=== PATIENT | female | born 2000 | race Caucasian/White ===

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

== ENCOUNTER 2021-04-26 10:34 | Emergency (ER) | payer BC, OTHER ==
[2021-04-26] MEDS ORDERED: dexAMETHasone 4 MG TAB PO STA (13:05)
--- NOTE | 2021-04-26 13:17 | ED ---
General Adult HPI - General Chief complaint: ENT Stated complaint: Sore throat Time Seen by Provider: 04/26/21 10:41 Source: patient Mode of arrival: ambulatory Limitations: no limitations - History of Present Illness Initial comments: 20-year-old female presents to the emergency room for a chief complaint of sore throat. Patient has had a sore throat for 3 days now starting on Saturday. She did see the code enforcement officer at that time and was started on azithromycin. This was through telemetry visit. Today patient's throat felt worse and primary care was unable to do a [id number] visits recommends she come to the emergency room. She denies any difficulty swallowing or breathing. She has felt febrile on and off. Denies cough. She does admit to congestion.Patient has no other complaints at this time including shortness of breath, chest pain, abdominal pain, nausea or vomiting, headache, or visual changes. - Related Data Home Medications Medication Instructions Recorded Confirmed Acetaminophen [Tylenol 8 Hour] 650 mg PO Q8H PRN 04/26/21 04/26/21 Azithromycin [Zithromax Z-pack (6 See Taper PO HS 04/26/21 04/26/21 tabs)] Ibuprofen [Motrin Ib] 400 mg PO Q6H PRN 04/26/21 04/26/21 Norgestimate-Ethinyl Estradiol 1 tab PO HS 04/26/21 04/26/21 [Tri-Estarylla Tablet] busPIRone HCL 10 mg PO DAILY 04/26/21 04/26/21 Allergies Allergy/AdvReac Type Severity Reaction Status Date / Time Penicillins Allergy Anaphylaxis Verified 04/26/21 11:36 Sulfa (Sulfonamide Allergy Anaphylaxis Verified 04/26/21 11:36 Antibiotics) Review of Systems ROS Statement: Those systems with pertinent positive or pertinent negative responses have been documented in the HPI. ROS Other: All systems not noted in ROS Statement are negative. Past Medical History Past Medical History: No Reported History History of Any Multi-Drug Resistant Organisms: None Reported Past Surgical History: No Surgical Hx Reported Past Psychological History: No Psychological Hx Reported Smoking Status: Never smoker Past Alcohol Use History: None Reported Past Drug Use History: None Reported General Exam Limitations: no limitations General appearance: alert, in no apparent distress Head exam: Present: atraumatic, normocephalic, normal inspection Eye exam: Present: normal appearance, PERRL, EOMI. Absent: scleral icterus, conjunctival injection, periorbital swelling ENT exam: Present: normal exam, mucous membranes moist, TM's normal bilaterally, normal external ear exam. Absent: normal oropharynx (Bilateral tonsillar exudates noted) Neck exam: Present: normal inspection, full ROM, lymphadenopathy (Mild Submandibular lymphadenopathy). Absent: tenderness, meningismus Respiratory exam: Present: normal lung sounds bilaterally. Absent: respiratory distress, wheezes, rales, rhonchi, stridor Cardiovascular Exam: Present: regular rate, normal rhythm, normal heart sounds. Absent: systolic murmur, diastolic murmur, rubs, gallop, clicks GI/Abdominal exam: Present: soft, normal bowel sounds. Absent: distended, tenderness, guarding, rebound, rigid Course Vital Signs 04/26/21 04/26/21 10:38 13:28 Temperature 98.3 F 98.5 F Pulse Rate 94 80 Respiratory 16 18 Rate Blood Pressure 131/79 112/78 O2 Sat by Pulse 99 100 Oximetry Medical Decision Making - Medical Decision Making Vitals are stable. Patient is well-appearing. Patient does have tonsillar exudate bilaterally. However tonsillar pillars are symmetric. Uvula is midline. No evidence of abscess. Patient was tested for strep, mono, and Covid all of which were negative. Patient is on day 3 of azithromycin and we will continue this given her anaphylactic ALLERGY to penicillins. Recommend she fol low up with culture results. She'll should return here for any worsening symptoms. She was given a dose of Decadron prior to discharge. - Lab Data Lab Results 04/26/21 04/26/21 04/26/21 Range/Units 11:34 11:34 11:34 Coronavirus (PCR) Not Detected (Not Detectd) Heterophile Antibody Negative (Negative) Group A Strep Rapid Negative (Negative) Disposition Clinical Impression: Pharyngitis Disposition: HOME SELF-CARE Condition: Good Instructions (If sedation given, give patient instructions): Pharyngitis (ED) Additional Instructions: Please continue to take the azithromycin as discussed. Please follow up with primary care in 1-2 days. Return to the ER for any worsening symptoms. Is patient prescribed a controlled substance at d/c from ED?: No Referrals: Arin Mccauley MD [Primary Care Provider] - 1-2 days Time of Disposition: 13:16
[2021-04-26 13:29] VITALS: BP 112/78; PULSE 80; RESP 18; TEMP 98.5
== END 2021-04-26 13:29 | disposition home or self-care (01) ==
LOC: EC 10:34
DX: J02.9 Acute pharyngitis, unspecified (principal); Z20.822 Contact with and (suspected) exposure to COVID-19; Z88.0 Allergy status to penicillin
CPT/HCPCS: 36415; 86308; 87081; 87430; 87635; 99283; J8540

== ENCOUNTER → 2022-02-21 | Outpatient (CLI) | payer OTHER ==
--- NOTE | 2022-02-21 15:52 | US ---
EXAMINATION TYPE: US pelvic complete DATE OF EXAM: 02/21/2022 COMPARISON: NONE CLINICAL HISTORY: R10.2 PELVIC PAIN. Pelvic pain for the past 2-3 months, history of ovarian cyst. TECHNIQUE: Transabdominal (TA). Transabdominal sonographic images of the pelvis were acquired. Date of LMP: 02/05/2022 EXAM MEASUREMENTS: Uterus: 6.7 x 4.7 x 3.3 cm Endometrial Stripe: 0.4 cm Right Ovary: 2.0 x 1.5 x 2.0 cm Left Ovary: 3.8 x 3.2 x 2.3 cm 1. Uterus: Anteverted wnl 2. Endometrium: wnl 3. Right Ovary: wnl 4. Left Ovary: wnl 5. Bilateral Adnexa: wnl 6. Posterior cul-de-sac: wnl No abnormalities seen at this time. IMPRESSION: 1. Unremarkable pelvic ultrasound.
== END | disposition home or self-care (01) ==
LOC: RADUSWWP 15:27
PROVIDERS: ATTEND Obstetrics & Gynecology
DX: R10.2 Pelvic and perineal pain (principal)
CPT/HCPCS: 76856

== ENCOUNTER → 2022-10-05 | Outpatient (CLI) | payer BC ==
[2022-10-06 11:41] LABS: Clam IgE <0.10 kU/L; Codfish IgE <0.10 kU/L; Egg White IgE 0.11 kU/L; Peanut IgE <0.10 kU/L; Scallop IgE <0.10 kU/L; Shrimp IgE <0.10 kU/L; Soybean IgE <0.10 kU/L; Walnut IgE (Food) <0.10 kU/L
== END | disposition home or self-care (01) ==
LOC: LABWHC1 15:16
PROVIDERS: ATTEND Otolaryngology
DX: J30.89 Other allergic rhinitis (principal)
CPT/HCPCS: 36415; 82785; 86001; 86003